=== PATIENT | male | born 1980 | race Caucasian/White ===

== ENCOUNTER 2019-03-15 07:07 | Day surgery (SDC) | payer BC ==
[~2019-03-15 07:07] MED LIST: Dexamethasone 4 MG/ML 5 ML MDV ONE; EPINEPHrine 1 MG/ML SDV ONE; Ketorolac 30 MG/ML SDV ONE; Lactated Ringers 1,000 ML IV SCH; Lactated Ringers 1,000 ML ONE; Lidocaine 1% 4 ML ONE; Lidocaine 1% 6 ML ONE; Lidocaine 1%/Sod Bicarbonate in NS 8.4% 1 ML Syringe IDERM PRN; Midazolam 1 MG/ML 2 ML SDV ONE; Ondansetron 4 MG/2 ML SDV ONE; Propofol 200 MG/20 ML SDV ONE; Rocuronium 50 MG/5 ML Vial ONE; Ropivacaine 0.5% 5 MG/ML 30 ML SDV ONE; Sodium Chloride 0.9% 10 ML Syringe FLUSH PRN; fentaNYL 250 MCG/5 ML SDV ONE
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
[2019-03-15] MEDS ORDERED: EPINEPHrine 1 MG/ML 30 ML MDV ONE (08:00)
[2019-03-15] MEDS ORDERED: fentaNYL 100 MCG/2 ML SDV ONE (08:31)
[2019-03-15] MEDS ORDERED: HYDROmorphone 0.5 MG/0.5 ML Syringe IVPUSH PRN (08:47)
[2019-03-15] MEDS ORDERED: fentaNYL 100 MCG/2 ML SDV IVPUSH PRN (08:47)
[2019-03-15] MEDS ORDERED: Ondansetron 4 MG/2 ML SDV IVPUSH PRN (08:47)
[2019-03-15] MEDS ORDERED: Albuterol 0.083% 2.5 MG/3 ML Neb Soln NEB PRN (08:47)
[2019-03-15] MEDS ORDERED: diphenhydrAMINE 50 MG/ML SDV IVPUSH PRN (08:47)
[2019-03-15] MEDS ORDERED: Phenylephrine 1 MG in Sodium Chloride 0.9% 10 ML IV SCH (09:00)
[2019-03-15] MEDS ORDERED: Neostigmine Methylsulfate 1 MG/ML 5 ML Syringe ONE (09:15)
--- NOTE | 2019-03-15 10:01 | PCM.POSTAN ---
POST ANESTHESIA ASSESSMENT - MENTAL STATUS Mental Status: Alert - VITAL SIGNS Pulse Rate: 95 SaO2: 94 (2LPM nasal cannula) Resp Rate: 16 Blood Pressure: 137/95 Temperature: 36.8 C - RESPIRATORY Respiratory Status: Respiratory Rate WNL, Airway Patent, O2 Saturation Stable, Supplemental Oxygen - CARDIOVASCULAR CV Status: Pulse Rate WNL, Blood Pressure Stable - GASTROINTESTINAL GI Status: No Symptoms - POST OP HYDRATION Hydration Status: Adequate & Stable
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
[2019-03-15] MEDS ORDERED: Acetaminophen/HYDROcodone 325-5 MG Tab PO PRN (10:48)
[2019-03-15 12:19] VITALS: BP 114/85
--- NOTE | 2019-03-15 12:22 | PCM48HPAN ---
Post Anesthesia Note - EVALUATION WITHIN 48HRS OF ANESTHETIC Vital Signs in Normal Range: Yes Patient Participated in Evaluation: Yes Respiratory Function Stable: Yes Airway Patent: Yes Cardiovascular Function Stable: Yes Hydration Status Stable: Yes Pain Control Satisfactory: Yes Nausea and Vomiting Control Satisfactory: Yes Mental Status Recovered: Yes
--- NOTE | 2019-03-20 15:27 | PCM.OPNOTE ---
- General Post-Op/Procedure Note Date of Surgery/Procedure: 03/15/19 Operative Procedure(s): right shoulder video arthroscopy with biceps tenodesis, subacromial decompression, distal clavicle excision and extensive debridement Pre Op Diagnosis: right shoulder SLAP tear with subacromial impingment and AC joint arthrosis Post-Op Diagnosis: Same Anesthesia Technique: General ET Tube, Regional Block Primary Surgeon: Elias Graham Anesthesia Provider: Susan Villarreal Consumer Recruiter: Annelise Jacobson EBRoberto in mLs: 5 Complications: None Condition: Good
--- NOTE | 2019-03-20 16:12 | OR ---
DATE OF OPERATION: 03/15/2019 SURGEON: Elias Graham MD OPERATION PERFORMED: Right shoulder video arthroscopy with biceps tenodesis, subacromial decompression, distal clavicle excision, and extensive debridement. PREOPERATIVE DIAGNOSIS: Right shoulder superior labrum anterior and posterior tear with subacromial impingement and AC joint arthrosis. POSTOPERATIVE DIAGNOSIS: Right shoulder superior labrum anterior and posterior tear with subacromial impingement and AC joint arthrosis. ANESTHESIA: General endotracheal intubation with regional interscalene block. ANESTHESIA PROVIDER: Susan Villarreal CRNA INSTRUCTIONAL TECHNOLOGY FACILITATOR: Annelise Jacobson PA-C ESTIMATED BLOOD LOSS: Less than 5 mL. COMPLICATIONS: None. CONDITION: Stable. DESCRIPTION OF PROCEDURE: The patient was identified in the preoperative holding area. Proper site was marked and identified by the surgeon. The patient was taken back to the operative theater, where after adequate anesthesia, the patient was placed in a lazy left lateral decubitus position. A wedge was placed posteriorly. The patient was secured to the table. At this time, right upper extremity was sterilely prepped and draped in the usual sterile fashion. OR-wide time-out was performed. The patient received 2 g IV Ancef. At this time, 12 pounds of traction was applied to the right upper extremity. Standard posterior incision was made. Scope trocar was introduced into the glenohumeral joint. The patient, at this time, was noted to have a type 2 SLAP tear with significant bicipital tendinitis. Subscapularis tendon was intact. There was no chondromalacia of the glenohumeral joint. Undersurface of the rotator cuff was intact. At this time, an anterior portal was created with an outside-in technique. A #2 FiberWire was passed through the rotator interval and then through the biceps tendon, and then a biceps tenotomy was performed for later biceps tenodesis in the rotator interval. At this time, significant synovectomy as well as debridement was done of the superior rim of the acetabulum as well as the superior labrum back to a stable rim. There was no instability noted to the rest of the labrum. At this time, the scope was placed in the subacromial space. A lateral portal was then created. The anterior limbs of the tenodesis for the biceps were identified in the subacromial space and then were tied arthroscopically for a soft tissue tenodesis in the rotator interval. The patient was noted to have significant fraying and degenerative change of the AC joint as well as the CA ligament. Peel back as well as extensive debridement was done of the CA ligament. Then, a subacromial decompression was performed after significant synovectomy and bursectomy were performed in the subacromial space. With the use of a 5.5 full-radius bur, the subacromial decompression was performed back to a smooth border along with the posterior rim. Once this had been completed, the AC joint was identified and distal clavicle excision was done. Roughly 9 to 10 mm of distal clavicle was resected and was noted to have full resection all the way anterior to posterior. Once this was completed, the patient's rotator cuff was found to have a minor amount of fraying, but there was no full-thickness rotator cuff defect. Adequate saline was irrigated through the shoulder. 3-0 nylon sutures were used for closure of the skin. The patient was placed in a sterile soft dressing and a pillow sling, and sent to the PACU in a stable condition. KAYLIN /[id number]
== END 2019-03-15 11:49 | disposition home or self-care (01) ==
LOC: JD.SDS 07:07
PROVIDERS: ATTEND Orthopaedic Surgery
DX: S43.431A Superior glenoid labrum lesion of right shoulder, initial encounter (principal); M75.21 Bicipital tendinitis, right shoulder; M75.41 Impingement syndrome of right shoulder; M19.011 Primary osteoarthritis, right shoulder; F17.290 Nicotine dependence, other tobacco product, uncomplicated; G89.18 Other acute postprocedural pain; X58.XXXA Exposure to other specified factors, initial encounter; Z91.011 Allergy to milk products; Z79.1 Long term (current) use of non-steroidal anti-inflammatories (NSAID); Z79.899 Other long term (current) drug therapy
CPT/HCPCS: 29823; 29824; 29828; 64415; 87641; A9270; J0171; J1100; J1885; J2001; J2250; J2405; J2704; J2710; J2795; J3010; J7120; 01630

== ENCOUNTER 2019-07-12 08:32 | Day surgery (SDC) | payer BC ==
[~2019-07-12 08:32] MED LIST changes: -Dexamethasone 4 MG/ML 5 ML MDV ONE; +EPINEPHrine 1 MG/ML 30 ML MDV SCH; -EPINEPHrine 1 MG/ML SDV ONE; -Ketorolac 30 MG/ML SDV ONE; -Lactated Ringers 1,000 ML ONE; -Lidocaine 1% 4 ML ONE; -Lidocaine 1% 6 ML ONE; -Midazolam 1 MG/ML 2 ML SDV ONE; -Ondansetron 4 MG/2 ML SDV ONE; -Propofol 200 MG/20 ML SDV ONE; -Rocuronium 50 MG/5 ML Vial ONE; -Ropivacaine 0.5% 5 MG/ML 30 ML SDV ONE; -fentaNYL 250 MCG/5 ML SDV ONE
[2019-07-12] MEDS ORDERED: EPINEPHrine 1 MG/1 ML Amp ONE (08:34)
[2019-07-12] MEDS ORDERED: Lidocaine 1% 2 ML ONE (08:34)
[2019-07-12] MEDS ORDERED: Ropivacaine 0.5% 5 MG/ML 30 ML SDV ONE (08:34)
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
[2019-07-12] MEDS ORDERED: Midazolam 1 MG/ML 2 ML SDV IVPUSH PRN (10:58)
[2019-07-12] MEDS ORDERED: fentaNYL 100 MCG/2 ML SDV IVPUSH PRN ×3 (10:58→16:03)
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
[2019-07-12] MEDS ORDERED: Propofol 200 MG/20 ML SDV ONE (12:00)
[2019-07-12] MEDS ORDERED: Ondansetron 4 MG/2 ML SDV ONE (12:00)
[2019-07-12] MEDS ORDERED: Midazolam 1 MG/ML 2 ML SDV ONE (12:00)
[2019-07-12] MEDS ORDERED: ceFAZolin 1 GM Vial ONE (12:00)
[2019-07-12] MEDS ORDERED: fentaNYL 250 MCG/5 ML SDV ONE (12:00)
[2019-07-12] MEDS ORDERED: Lidocaine 1% 4 ML ONE (12:00)
[2019-07-12] MEDS ORDERED: Lactated Ringers 1,000 ML ONE ×2 (12:00→15:55)
[2019-07-12] MEDS ORDERED: Dexamethasone 4 MG/ML 5 ML MDV ONE (12:13)
[2019-07-12] MEDS ORDERED: Ketorolac 30 MG/ML SDV ONE (12:13)
[2019-07-12] MEDS ORDERED: Sodium Chloride 0.9% 0 ML ONE (12:34)
[2019-07-12] MEDS ORDERED: Rocuronium 50 MG/5 ML Vial ONE (14:03)
[2019-07-12] MEDS ORDERED: diphenhydrAMINE 50 MG/ML SDV IVPUSH PRN (14:47)
[2019-07-12] MEDS ORDERED: Ondansetron 4 MG/2 ML SDV IVPUSH PRN (14:47)
--- NOTE | 2019-07-12 16:04 | PCM.POSTAN ---
POST ANESTHESIA ASSESSMENT - MENTAL STATUS Mental Status: Alert, Oriented - VITAL SIGNS Vital Signs: Last Vital Signs Temp 37.1 C 07/12/19 09:15 Pulse 83 07/12/19 09:15 Resp 14 07/12/19 11:30 BP 98/63 07/12/19 11:30 Pulse Ox 97 07/12/19 11:30 - RESPIRATORY Respiratory Status: Respiratory Rate WNL, Airway Patent, O2 Saturation Stable, Supplemental Oxygen - CARDIOVASCULAR CV Status: Pulse Rate WNL, Blood Pressure Stable - GASTROINTESTINAL GI Status: No Symptoms - POST OP HYDRATION Hydration Status: Adequate & Stable - OBSERVATIONS Free Text/Narrative:: no anesthetic complications noted
[2019-07-12 18:29] VITALS: BP 121/80
--- NOTE | 2019-07-16 14:44 | PCM.OPNOTE ---
- General Post-Op/Procedure Note Date of Surgery/Procedure: 07/12/19 Operative Procedure(s): left shoulder video arthroscopy with subacromial decompression, extensive debridement and biceps tenodesis Pre Op Diagnosis: left shoulder impingement with biceps teninopathy Post-Op Diagnosis: Same Anesthesia Technique: General ET Tube, Regional Block Primary Surgeon: Elias Graham Anesthesia Provider: Akhil Fuentes Bottle Packing Machine Cleaner: Annelise Jacobson EBL in mLs: 5 Complications: None Condition: Good
--- NOTE | 2019-07-16 15:23 | OR ---
DATE OF OPERATION: 07/12/2019 SURGEON: Elias Graham MD OPERATION PERFORMED: Left shoulder video arthroscopy with subacromial decompression, extensive debridement, and biceps tenodesis. PREOPERATIVE DIAGNOSIS: Left shoulder impingement with biceps tendinopathy. POSTOPERATIVE DIAGNOSIS: Left shoulder impingement with biceps tendinopathy. ANESTHESIA: General endotracheal intubation with regional interscalene block. ANESTHESIA PROVIDER: Akhil Fuentes CRNA. ACADEMIC HOSPITALIST: Annelise Jacobson PA-C. ESTIMATED BLOOD LOSS: Less than 5 mL. COMPLICATIONS: None. CONDITION: Stable. DESCRIPTION OF PROCEDURE: The patient was identified in the preoperative holding area. Proper site was marked and identified by the surgeon. The patient was taken back to the operating theater, where after adequate anesthesia, the patient was placed in the right lazy lateral decubitus position. A wedge was placed posteriorly in the left upper extremity and sterilely prepped and draped in the usual sterile fashion. OR time-out was performed. The patient received 2 g IV Ancef. 10 pounds of traction was applied to the left upper extremity. Standard posterior incision was made. Scope trocar was introduced to the glenohumeral joint and an anterior portal was created with the use of an outside-in technique. At this time, the patient's biceps tendon was noted to be significantly erythematous, but with no significant fraying, there was no glenohumeral chondromalacia noted. The subscapularis tendon was intact. The undersurface of the rotator cuff was intact with no signs of erythema. At this time, tenodesis was performed with the use of a spinal needle. #2 FiberWire was placed through the biceps tendon and a tenotomy was performed for soft tissue tenodesis in the rotator interval. Once this was completed, attention was turned to the subacromial space. The patient was noted to have severe bursitis in the subacromial space and it took significant amount of time to debride all of the significant bursitis. The patient's AC joint showed no signs of osteoarthrosis on either radiographs or under direct visualization. The patient was noted to have a type 3 acromion, so with the use of a 4-0 full-radius kolton, I was able to resect it back to a type 1 acromion, which was flat with the posterior portion of the acromion. The anterior suture limbs were identified in the subacromial space. These were then tied arthroscopically for the biceps tenodesis. The rest of the rotator cuff was intact. No signs of rotator cuff tear. Excess saline was drained from the shoulder. 3-0 nylon suture was used for closure of the portal incision and the patient was sent to PACU in stable condition. KAYLIN /[id number]
== END 2019-07-12 18:18 | disposition home or self-care (01) ==
LOC: JD.SDS 08:32
PROVIDERS: ATTEND Orthopaedic Surgery
DX: M75.42 Impingement syndrome of left shoulder (principal); M75.52 Bursitis of left shoulder; M75.22 Bicipital tendinitis, left shoulder; F17.290 Nicotine dependence, other tobacco product, uncomplicated; Z91.011 Allergy to milk products
CPT/HCPCS: 29826; 29828; 87641; J0171; J0690; J1100; J1885; J2001; J2250; J2405; J2704; J2795; J3010; J7120; J7050

== ENCOUNTER 2022-08-24 05:31 | Emergency (ER) | payer BC ==
[2022-08-26 13:46] VITALS: BP 138/86; PULSE 79
== END 2022-08-24 08:50 | disposition home or self-care (01) ==
LOC: JD.ED 05:31
DX: N13.2 Hydronephrosis with renal and ureteral calculous obstruction (principal); R91.8 Other nonspecific abnormal finding of lung field; R82.81 Pyuria
CPT/HCPCS: 74176; 74176-26; 99284

== ENCOUNTER 2023-10-03 05:06 | Emergency (ER) | payer BC ==
[2023-10-03] MEDS ORDERED: Sodium Chloride 0.9% 10 ML Syringe FLUSH PRN (05:31)
[2023-10-03] MEDS ORDERED: Naloxone 0.4 MG/ML SDV IVPUSH PRN (05:33)
[2023-10-03] MEDS ORDERED: Morphine 4 MG/ML Syringe IVPUSH ONE (05:33)
[2023-10-03] MEDS ORDERED: Ondansetron 4 MG/2 ML SDV IVPUSH ONE (05:34)
[2023-10-03] MEDS ORDERED: Sodium Chloride 0.9% 1,000 ML IV SCH (05:45)
[2023-10-03 05:48] LABS: BASOPHILS ABSOLUTE AUTO 0.1 K/mm3 (0.0-0.2); BASOPHILS PERCENT AUTO 0.8 % (0.0-1.0); EOSINOPHILS ABSOLUTE AUTO 0.1 K/mm3 (0.0-0.4); EOSINOPHILS PERCENT AUTO 0.5 % (0.0-6.0); HEMATOCRIT 48.8 % (42.0-52.0); HEMOGLOBIN 16.8 gm/dl (14.0-18.0); IMMATURE GRAN ABSOLUTE AUTO 0.04 K/mm3 (0.00-0.05); IMMATURE GRAN PERCENT AUTO 0.3 % (0.0-0.4); LYMPHOCYTES ABSOLUTE AUTO 1.5 K/mm3 (1.0-4.8); LYMPHOCYTES PERCENT AUTO 11.8 % (24.0-44.0); MEAN CORPUSCULAR HEMOGLOBIN 29.4 pg (28.0-32.0); MEAN CORPUSCULAR HGB CONC 34.4 g/dl (32.0-36.0); MEAN CORPUSCULAR VOLUME 85.5 fl (83.0-99.0); MONOCYTES ABSOLUTE AUTO 0.6 K/mm3 (0.0-0.8); MONOCYTES PERCENT AUTO 4.5 % (0.0-8.0); NEUTROPHILS ABSOLUTE AUTO 10.2 K/mm3 (1.8-7.7); NEUTROPHILS PERCENT AUTO 82.1 % (41.0-71.0); PLATELET COUNT,PLT 267 K/mm3 (150-400); RED BLOOD CELL COUNT 5.71 M/mm3 (4.52-5.90); WHITE BLOOD CELL COUNT,WBC 12.41 K/mm3 (3.9-11.3)
[2023-10-03 05:53] LABS: A/G RATIO 1.1 (1-2); ALBUMIN 4.2 g/dl (3.4-5.0); ANION GAP 15.3 (5-15); BILIRUBIN TOTAL 0.5 mg/dL (0.2-1.0); BUN/CREATININE RATIO 16.2 (14-18); CALCIUM 9.6 mg/dL (8.5-10.1); CREATININE 1.3 mg/dL (0.7-1.3); EST CRCL DRUG DOSING (CG) 67.48 mL/min; POTASSIUM,K 4.3 mEq/L (3.5-5.1)
[2023-10-03 06:02] LABS: APPEARANCE,URINE CLEAR (Clear); BILIRUBIN,URINE NEGATIVE (Negative); COLOR,URINE YELLOW (Yellow); GLUCOSE,URINE NEGATIVE (Negative); KETONES,URINE NEGATIVE (Negative); LEUKOCYTE ESTERASE,URINE NEGATIVE (Negative); NITRITE,URINE NEGATIVE (Negative); OCCULT BLOOD,URINE 2+ (Negative); PH,URINE 5.5 (5.0-8.0); PROTEIN,URINE NEGATIVE (Negative); UROBILINOGEN,URINE 0.2 (0.2-1.0)
[2023-10-03] MEDS ORDERED: Ketorolac 15 MG/ML SDV IVPUSH ONE (06:02)
[2023-10-03 06:29] LABS: BACTERIA,URINE FEW /hpf (FEW); SQUAMOUS EPITHELIAL CELLS,UR 0-5 /hpf (0-5); WBC,URINE 0-5 /hpf (0-5)
[2023-10-03 06:30] LABS: MUCUS,URINE NOT SEEN /hpf (FEW); YEAST,URINE FEW (NOT SEEN)
[2023-10-03 08:18] VITALS: BP 140/86; PULSE 70
== END 2023-10-03 07:54 | disposition home or self-care (01) ==
LOC: JD.ED 05:06
DX: N13.2 Hydronephrosis with renal and ureteral calculous obstruction (principal); Z91.011 Allergy to milk products
CPT/HCPCS: 36415; 74176; 80053; 81001; 85025; 96374; 96375; 99284; J1885; J2270; J2405; J7030

== ENCOUNTER 2024-03-26 05:48 | Emergency (ER) | payer BC ==
[2024-03-26] MEDS: Ketorolac 30 MG/ML SDV IVPUSH ONE (06:17)
[2024-03-26] MEDS: Sodium Chloride 0.9% 10 ML Syringe FLUSH PRN (06:23)
[2024-03-26 06:27] LABS: BASOPHILS ABSOLUTE AUTO 0.1 K/mm3 (0.0-0.2); BASOPHILS PERCENT AUTO 0.9 % (0.0-1.0); EOSINOPHILS ABSOLUTE AUTO 0.2 K/mm3 (0.0-0.4); EOSINOPHILS PERCENT AUTO 2.5 % (0.0-6.0); HEMATOCRIT 45.9 % (42.0-52.0); HEMOGLOBIN 15.9 gm/dl (14.0-18.0); IMMATURE GRAN ABSOLUTE AUTO 0.03 K/mm3 (0.00-0.05); IMMATURE GRAN PERCENT AUTO 0.4 % (0.0-0.4); LYMPHOCYTES ABSOLUTE AUTO 1.9 K/mm3 (1.0-4.8); MEAN CORPUSCULAR HGB CONC 34.6 g/dl (32.0-36.0); MEAN CORPUSCULAR VOLUME 83.6 fl (83.0-99.0); MONOCYTES ABSOLUTE AUTO 0.5 K/mm3 (0.0-0.8); MONOCYTES PERCENT AUTO 7.7 % (0.0-8.0); NEUTROPHILS ABSOLUTE AUTO 4.3 K/mm3 (1.8-7.7); NEUTROPHILS PERCENT AUTO 61.5 % (41.0-71.0); PLATELET COUNT,PLT 236 K/mm3 (150-400); RED BLOOD CELL COUNT 5.49 M/mm3 (4.52-5.90); WHITE BLOOD CELL COUNT,WBC 6.92 K/mm3 (3.9-11.3)
[2024-03-26 06:54] LABS: A/G RATIO 1.2 (1-2); ALBUMIN 3.8 g/dl (3.4-5.0); ANION GAP 15.9 (5-15); BILIRUBIN TOTAL 0.4 mg/dL (0.2-1.0); BUN/CREATININE RATIO 14.5 (14-18); CALCIUM 8.9 mg/dL (8.5-10.1); CREATININE 1.1 mg/dL (0.7-1.3); EST CRCL DRUG DOSING (CG) 79.75 mL/min; MAGNESIUM 1.9 mg/dL (1.8-2.4); POTASSIUM,K 3.9 mEq/L (3.5-5.1)
[2024-03-26 07:36] VITALS: BP 136/99; PULSE 75
== END 2024-03-26 07:17 | disposition home or self-care (01) ==
LOC: JD.ED 05:48
DX: N13.2 Hydronephrosis with renal and ureteral calculous obstruction (principal); Z91.011 Allergy to milk products; Z79.899 Other long term (current) drug therapy
CPT/HCPCS: 36415; 74176; 80053; 83735; 85025; 96374; 99284; J1885; J3490